=== PATIENT | male | born 1960 | race Caucasian/White ===

== ENCOUNTER 2021-05-23 12:59 | Emergency (ER) | payer BC ==
--- NOTE | 2021-05-23 15:21 | EDM.PDOC ---
ED HPI GENERAL MEDICAL PROBLEM - General Chief Complaint: Respiratory Problem Stated Complaint: SOB COUGH Time Seen by Provider: 05/23/21 15:15 Source of Information: Reports: Patient History Limitations: Reports: No Limitations - History of Present Illness INITIAL COMMENTS - FREE TEXT/NARRATIVE: 60-year-old male presents to the ED concerned that he may have COVID-19 illness. He has persistent nasal congestion for over 2 weeks. Associated paroxysmal nonproductive cough. Lungs feel heavy like it is difficult to get a full breath at times. Initially he did have fever and chills and still has a little bit of diarrhea. Appetite remains poor. No nausea or vomiting. Mild sore throat. He believes his sense of smell and taste is off a bit as well but is not completely gone. He has not been vaccinated for COVID-19 illness. Exposed to COVID-19 illness with his daughter and her infant child who were both Covid positive. They live with him. Onset: Gradual Onset Date: 05/09/21 (He believes symptoms for the last 2 weeks) Duration: Day(s):, Getting Worse Quality: Reports: Other (Increasing dyspnea paroxysmal cough) Severity: Moderate Improves with: Reports: Rest Worsens with: Reports: Movement Context: Reports: Sick Contact (Exposed to his daughter and her who both were Covid positive.). Denies: Activity (Shortness of breath on exertion), Exercise, Lifting, Trauma, Other Associated Symptoms: Reports: Cough, Fever/Chills, Loss of Appetite, Malaise, Shortness of Breath, Weakness (Diarrhea but he blames this more on drinking ca ffeinated coffee), Other. 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 - Related Data Allergies Allergy/AdvReac Type Severity Reaction Status Date / Time No Known Allergies Allergy Verified 04/23/14 21:35 CDT Home Meds: Home Meds Albuterol [Ventolin HFA] 1 inhalation ORAL.INH TID PRN 04/23/14 [History] Cefdinir [Omnicef] 300 mg PO BID #20 cap 05/23/21 [Rx] Fluticasone Propion/Salmeterol [Wixela 250-50 Inhub] 1 puff INH BID 05/23/21 [History] Loratadine/Pseudoephedrine [Claritin-D 12 Hour] 1 tab PO Q12HR #7 tab.er 05/23/21 [Rx] Past Medical History HEENT History: Reports: Impaired Vision Cardiovascular History: Reports: Hypertension Respiratory History: Reports: Asthma Psychiatric History: Reports: Anxiety, Depression - Infectious Disease History Infectious Disease History: Reports: Chicken Pox Social & Family History - Tobacco Use Tobacco Use Status *Q: Never Tobacco User - Caffeine Use Caffeine Use: Reports: Coffee - Recreational Drug Use Recreational Drug Use: No - Living Situation & Occupation Living situation: Reports: Occupation: Employed ED ROS GENERAL - Review of Systems Review Of Systems: See Below Constitutional: Reports: Fever (Initial onset of fever and chills 2 weeks ago), Malaise, Weakness, Fatigue, Decreased Appetite (Fatigue and weakness are persisting), Weight Loss HEENT: Reports: Glasses (Glasses for reading) Respiratory: Reports: Shortness of Breath, Cough, Other (History of asthma without any wheezing). Denies: Wheezing, Pleuritic Chest Pain, Sputum, Hemoptysis (Paroxysmal cough nonproductive) Cardiovascular: Reports: Blood Pressure Problem, Dyspnea on Exertion. Denies: Chest Pain, Claudication, Edema, Lightheadedness, Orthopnea (Not to his knowledge) Endocrine: Reports: Fatigue GI/Abdominal: Reports: Diarrhea (He blames this on caffeinated coffee.), Decreased Appetite. Denies: Nausea, Vomiting : Reports: Frequency, Other Musculoskeletal: Reports: Joint Pain (Mostly in his lower back neck) Skin: Reports: No Symptoms ( knees at times) Neurological: Reports: Headache (Initially but not for the last 10 days) Psychiatric: Reports: No Symptoms ED EXAM, GENERAL - Physical Exam Exam: See Below Exam Limited By: No Limitations General Appearance: Alert, WD/WN, No Apparent Distress, Other (Temperature is 36.7. Heart rate 68 sinus respiratory is 18 with O2 sats of 92% at come up to 100% when he breathes deep. BP 1 5293) Eye Exam: Bilateral Eye: Normal Inspection (No blepharal pallor or scleral icterus), PERRL Ears: Normal TMs Throat/Mouth: Normal Inspection, Normal Lips, Normal Oropharynx Head: Atraumatic, Normocephalic Neck: Normal Inspection, Supple, Non-Tender, Full Range of Motion. No: Lymphadenopathy (L), Lymphadenopathy (R) Respiratory/Chest: No Respiratory Distress, Lungs Clear, Normal Breath Sounds, No Accessory Muscle Use Cardiovascular: Normal Peripheral Pulses, Regular Rate, Rhythm, No Edema, No Gallop, No JVD, No Murmur, No Rub Peripheral Pulses: 2+: Carotid (L), Carotid (R), Posterior Tibial (L), Posterior Tibial (R), Dorsalis Pedis (L), Dorsalis Pedis (R) GI/Abdominal: Normal Bowel Sounds, Soft, Non-Tender, No Organomegaly, No Distention, Other Back Exam: Normal Inspection, Full Range of Motion. No: CVA Tenderness (L), CVA Tenderness (R) Extremities: Normal Inspection, Normal Range of Motion, Non-Tender, No Pedal Edema Neurological: Alert, Oriented, CN II-XII Intact, Normal Cognition Psychiatric: Normal Affect, Normal Mood Skin Exam: Warm, Dry, Intact, Normal Color, No Rash Course - Vital Signs Last Recorded V/S: Last Vital Signs Temp 36.7 C 05/23/21 13:49 Pulse 68 05/23/21 13:49 Resp 18 05/23/21 13:49 BP 152/93 H 05/23/21 13:49 Pulse Ox 92 L 05/23/21 13:49 - Orders/Labs/Meds Orders: Active Orders 24 hr Category Date Time Status Chest 1V Frontal [CR] Stat Exams 05/23/21 15:21 Taken Labs: Laboratory Tests 05/23/21 05/23/21 05/23/21 Range/Units 15:01 15:49 15:49 WBC 6.44 (4.23-9.07) K/mm3 RBC 5.30 (4.63-6.08) M/mm3 Hgb 15.6 (13.7-17.5) gm/dl Hct 46.9 (40.1-51.0) % MCV 88.5 (79.0-92.2) fl MCH 29.4 (25.7-32.2) pg MCHC 33.3 (32.2-35.5) g/dl RDW Std Deviation 44.2 H (35.1-43.9) fL Plt Count 248 (163-337) K/mm3 MPV 9.8 (9.4-12.3) fl Neut % (Auto) 55.7 (34.0-67.9) % Lymph % (Auto) 25.2 (21.8-53.1) % Bradford % (Auto) 10.1 (5.3-12.2) % Eos % (Auto) 8.2 H (0.8-7.0) Baso % (Auto) 0.6 (0.1-1.2) % Neut # (Auto) 3.59 (1.78-5.38) K/mm3 Lymph # (Auto) 1.62 (1.32-3.57) K/mm3 Bradford # (Auto) 0.65 (0.30-0.82) K/mm3 Eos # (Auto) 0.53 (0.04-0.54) K/mm3 Baso # (Auto) 0.04 (0.01-0.08) K/mm3 Sodium 144 (136-145) mEq/L Potassium 4.5 (3.5-5.1) mEq/L Chloride 105 (98-107) mEq/L Carbon Dioxide 28 (21-32) mEq/L Anion Gap 15.5 H (5-15) BUN 9 (7-18) mg/dL Creatinine 1.0 (0.7-1.3) mg/dL Est Cr Clr Drug Dosing 88.78 mL/min Estimated GFR (MDRD) > 60 (>60) mL/min BUN/Creatinine Ratio 9.0 L (14-18) Glucose 89 (70-99) mg/dL Calcium 9.3 (8.5-10.1) mg/dL Total Bilirubin 0.7 (0.2-1.0) mg/dL AST 20 (15-37) U/L ALT 33 (16-63) U/L Alkaline Phosphatase 77 (46-116) U/L Troponin I < 0.017 (0.00-0.056) ng/mL C-Reactive Protein <0.2 (<1.0) mg/dL Total Protein 7.4 (6.4-8.2) g/dl Albumin 4.0 (3.4-5.0) g/dl Globulin 3.4 gm/dL Albumin/Globulin Ratio 1.2 (1-2) Influenza Type A RNA Negative (NEGATIVE) Influenza Type B RNA Negative (NEGATIVE) SARS-CoV-2 RNA (TAYLOR) Negative (NEGATIVE) - Radiology Interpretation Free Text/Narrative:: 60-year-old male presents to the ED for COVID-19 symptoms. He believes he was exposed to COVID-19 through his daughter and her infant son whom apparently both were Covid positive and live with him. 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 However he has developed a significant nasal congestion mild sore throat with a paroxysmal nonproductive cough over the last 2 weeks. Feels like his lungs are full and congested. Appetite remains poor. Mild diarrhea but he is blaming this on caffeinated coffee. Examination his O2 sats are 92 to 94% room air. Lungs are clear to osseous percussion. Ear nose and throat exam is otherwise normal. Plan COVID-19 screen to be done. 1 view chest x-ray routine labs i.e. CBC, CMP and CRP to be done. A serum troponin as well. - Re-Assessments/Exams Free Text/Narrative Re-Assessment/Exam: 05/23/21 18:23 Labs revealed a white count of 6.44. The auto differential shows 55.7% neutrophils hemoglobin is 15.6 with hematocrit of 46.9. Platelet count is 248,000. Sodium 144 with a potassium of 4.5. Chloride is 105 with a bicarb of 28. Anion gap is 15.5. BUN is 9 with a creatinine of 1.0 and a GFR greater than 60. Glucose is 89. Calcium is 9.3 liver function normal troponin I is less than 0.017 C-reactive protein less than 0.2 total protein 7.4 with an albumin fraction of 4.0. Influenza screen negative COVID-19 screen is negative. I discussed the findings with the patient and he was thrilled to find out that he did not have COVID-19 illness. Decision made to treat him with oral antibiotic Omnicef 300 mg twice daily for 10 days for sinus infection since he has had very congested sinuses for over 2-1/[address] also [address] him on Claritin-D 12-hour release once daily every morning for the next 6 days. Departure - Departure Time of Disposition: 18:23 Disposition: Home, Self-Care 01 Condition: Fair Clinical Impression: Sinusitis, acute Qualifiers: Sinusitis location: maxillary Recurrence: non-recurrent Qualified Code(s): J01.00 - Acute maxillary sinusitis, unspecified - Discharge Information *PRESCRIPTION DRUG MONITORING PROGRAM REVIEWED*: Not Applicable *COPY OF PRESCRIPTION DRUG MONITORING REPORT IN PATIENT MADIHA: Not Applicable Prescriptions: Loratadine/Pseudoephedrine [Claritin-D 12 Hour] 1 tab PO Q12HR #7 tab.er Cefdinir [Omnicef] 300 mg PO BID #20 cap Instructions: Sinusitis, Adult, [id number] Referrals: PCP,None [Primary Care Provider] - Forms: ED Department Discharge Additional Instructions: There areEvaluation in the emergency room today in regards to upper respiratory tract signs and symptoms worrisome for COVID-19 illness. Children saturations were normal while in the ER between 97 and 99%. Chest x-ray reveals mildly hyperinflated lungs but no signs of any pneumonia in particular no signs of COVID-19 illness. COVID-19 screen also proved to be negative. White count which is a looking for signs of infection is upper limits of normal. I suspect that you do have acute sinus infection which has been going on for over 2 weeks likely making you feel a little under the weather. Suggest purchasing some Claritin-D 12-hour relief tablet which she can take once every morning for the next 4 to 5 days which will open up your sinuses and perhaps promote drainage. They do not cause fatigue or tiredness. Suggest antibiotic Omnicef 300 mg tablet twice daily for the next 10 days to clear up infection. Follow-up with personal care physician if any further problems occur Sepsis Event Note (ED) - Evaluation Sepsis Screening Result: No Definite Risk - Focused Exam Vital Signs: Vital Signs Temp Pulse Resp BP Pulse Ox 05/23/21 13:49 36.7 C 68 18 152/93 H 92 L - My Orders Last 24 Hours: My Active Orders 05/23/21 15:21 Chest 1V Frontal [CR] Stat - Assessment/Plan Last 24 Hours: My Active Orders 05/23/21 15:21 Chest 1V Frontal [CR] Stat
[2021-05-23 16:08] LABS: CORONAVIRUS COVID-19 NAA NEGATIVE (NEGATIVE)
--- NOTE | 2021-05-24 09:47 | CR ---
Chest: Portable view of the chest was obtained. Comparison: Prior chest x-ray of 11/18/13. Heart size and mediastinum are within normal limits. Lungs are clear with no acute parenchymal change. Bony structures show nothing acute. Impression: 1. Nothing acute is seen on portable chest x-ray. Diagnostic code #1
== END 2021-05-23 18:43 | disposition home or self-care (01) ==
LOC: JD.ED 12:59
DX: J01.00 Acute maxillary sinusitis, unspecified (principal); I10 Essential (primary) hypertension; Z20.822 Contact with and (suspected) exposure to COVID-19
CPT/HCPCS: 0240U; 36415; 71045; 80053; 84484; 85025; 86140; 99283

== ENCOUNTER 2023-07-29 03:36 | Emergency (ER) | payer BC ==
[2023-07-29] MEDS ORDERED: Albuterol/Ipratropium 3.0-0.5 MG/3 ML Neb Soln NEB ONE (03:54)
[2023-07-29] MEDS ORDERED: Sodium Chloride 0.9% 10 ML Syringe FLUSH PRN (03:54)
[2023-07-29] MEDS ORDERED: methylPREDNISolone Sodium Succinate 125 MG/2 ML SDV IVPUSH ONE (03:56)
[2023-07-29 04:19] LABS: BASOPHILS ABSOLUTE AUTO 0.1 K/mm3 (0.0-0.2); EOSINOPHILS ABSOLUTE AUTO 0.7 K/mm3 (0.0-0.4); EOSINOPHILS PERCENT AUTO 10.9 % (0.0-6.0); HEMATOCRIT 47.2 % (42.0-52.0); IMMATURE GRAN ABSOLUTE AUTO 0.03 K/mm3 (0.00-0.05); IMMATURE GRAN PERCENT AUTO 0.4 % (0.0-0.4); LYMPHOCYTES ABSOLUTE AUTO 1.9 K/mm3 (1.0-4.8); LYMPHOCYTES PERCENT AUTO 28.6 % (24.0-44.0); MEAN CORPUSCULAR HEMOGLOBIN 29.7 pg (28.0-32.0); MEAN CORPUSCULAR HGB CONC 33.9 g/dl (32.0-36.0); MEAN CORPUSCULAR VOLUME 87.6 fl (83.0-99.0); MEAN PLATELET VOLUME 9.8 fl (9.4-12.4); MONOCYTES ABSOLUTE AUTO 0.5 K/mm3 (0.0-0.8); MONOCYTES PERCENT AUTO 7.9 % (0.0-8.0); NEUTROPHILS ABSOLUTE AUTO 3.4 K/mm3 (1.8-7.7); NEUTROPHILS PERCENT AUTO 51.2 % (41.0-71.0); PLATELET COUNT,PLT 214 K/mm3 (150-400); RED BLOOD CELL COUNT 5.39 M/mm3 (4.52-5.90); WHITE BLOOD CELL COUNT,WBC 6.72 K/mm3 (3.9-11.3)
[2023-07-29 04:46] LABS: A/G RATIO 1.1 (1-2); ALANINE AMINOTRANSFERASE,ALT 26 U/L (16-63); ALBUMIN 3.8 g/dl (3.4-5.0); ALKALINE PHOSPHATASE 80 U/L (46-116); ANION GAP 13.7 (5-15); ASPARTATE AMNIOTRANSFERASE,AST 20 U/L (15-37); BILIRUBIN TOTAL 0.4 mg/dL (0.2-1.0); BLOOD UREA NITROGEN,BUN 13 mg/dL (7-18); BUN/CREATININE RATIO 10.8 (14-18); C-REACTIVE PROTEIN <0.2 mg/dL (<1.0); CALCIUM 8.7 mg/dL (8.5-10.1); CARBON DIOXIDE,CO2 27 mEq/L (21-32); CHLORIDE,CL 105 mEq/L (98-107); CREATININE 1.2 mg/dL (0.7-1.3); EST CRCL DRUG DOSING (CG) 72.13 mL/min; ESTIMATED GFR 68 mL/min (>60); GLUCOSE RANDOM 112 mg/dL (70-99); MAGNESIUM 1.8 mg/dL (1.8-2.4); POTASSIUM,K 3.7 mEq/L (3.5-5.1); PROTEIN TOTAL,TP 7.4 g/dl (6.4-8.2); SODIUM,NA 142 mEq/L (136-145)
[2023-07-29 04:56] LABS: CORONAVIRUS COVID-19 NAA NEGATIVE (NEGATIVE); INFLUENZA A NAA NEGATIVE (NEGATIVE); RESPIRATORY SYNCYTIAL VIR NAA NEGATIVE (NEGATIVE)
== END 2023-07-29 06:05 | disposition home or self-care (01) ==
LOC: JD.ED 03:36
DX: J45.21 Mild intermittent asthma with (acute) exacerbation (principal); I10 Essential (primary) hypertension; Z20.822 Contact with and (suspected) exposure to COVID-19; Z79.899 Other long term (current) drug therapy
CPT/HCPCS: 0241U; 36415; 71046; 80053; 83735; 85025; 86140; 94640; 96374; 99285; J2930; J3490; 99284; J7620-GY